=== PATIENT | male | born 1950 | race Caucasian/White ===

== ENCOUNTER 2016-10-09 15:22 | Emergency (ER) | payer MEDICARE ==
[2016-10-09] MEDS ORDERED: HEPARIN SOD PORCINE IV ONE (17:02)
[2016-10-09] MEDS ORDERED: HEPARIN SOD PORCINE 5,000 UNITS/ML VIAL ONE (17:02)
[2016-10-09] MEDS ORDERED: D5W IV ONE (17:02)
[2016-10-09 17:10] LABS: HEMATOCRIT 49.3 % (42.0-54.0); HEMOGLOBIN 15.9 g/dL (14.0-18.0); MEAN CORPUS. HGB CONCENTRATION 32.2 g/dL (32.0-36.0); MEAN CORPUSCULAR HEMOGLOBIN 36.4 pg (29.0-35.0); PLATELET COUNT 131 X 10^3uL (130-440); RED BLOOD COUNT 4.37 X 10^6uL (4.20-6.10); WHITE BLOOD COUNT 8.5 X 10^3uL (3.9-10.7)
[2016-10-09 17:13] LABS: EOSINOPHIL % (Manual) 1 % (0.0-6.0); LYMPHOCYTE % (Manual) 15 % (20.0-40.0); MONOCYTE % (Manual) 11 % (2.0-10.0); NEUTROPHIL % (Manual) 73 % (54.0-75.0); PLATELET ESTIMATE ADEQUATE
[2016-10-09 17:14] LABS: BLOOD UREA NITROGEN 6 mg/dL (9-20); CALCIUM 8.9 mg/dL (8.4-10.2); CHLORIDE 104 mmol/L (98-107); CREATININE 0.6 mg/dL (0.7-1.3); EST GLOMERULAR FILTRATION RATE > 60 mL/min; GLUCOSE 95 mg/dL (70-100); POTASSIUM 4.1 mmol/L (3.5-5.1); SODIUM 139 mmol/L (137-145)
--- NOTE | 2016-10-09 17:54 | ER NURSING DOCUMENTATION ---
Nurse's Notes [facility] Name:Jacob London Age:66 yrs Sex:Male :1950 Arrival Date:10/09/2016 Time:15:22 Bed1 Private MD: Diagnosis:Deep Vein Thrombosis (DVT)-: Extensive throughout entire right leg Presentation: 10/09 15:37 Presenting complaint: Patient states: PT with gross swelling to right leg from groin to ma toes for one week No injury Unable to palpate pedal pulse, foot grossly edematous Toes bright pink and warm Cap refill at 4. Transition of care: Home. 15:37 Acuity: ANGELIQUE 2 ma 15:37 Method Of Arrival: Private Vehicle ks Triage Assessment: 15:41 General: Appears slender, unkempt, Behavior is cooperative. Pain: Denies pain. ma Historical: - Allergies: No known drug Allergies; - Home Meds: 1. None - PMHx: None; - PSHx: Tonsills; - Tetanus: < 10 years. - Ebola Screening: : No symptoms or risks identified at this time. . - Immunization history: Flu Vaccine None. - Social history: Smoking status: Patient states was never smoker of tobacco. Patient uses alcohol on a daily basis. Screenin:42 Infectious Disease Risk None. Abuse screen: Denies threats or abuse. Nutritional ma screening: No deficits noted. Assessment: 17:28 Reassessment: No changes from previously documented assessment. ma Vital Signs: 15:41 BP 145 / 74; Pulse 83; Resp 16; Temp 97.4; ma 15:41 Pulse Ox 94% on R/A; Weight 61.23 kg; Height 5 ft. 10 in. (177.80 cm) (R); ma 17:17 BP 130 / 62; Pulse 82; Pulse Ox 95% on R/A; Pain 0/10; ma 17:25 BP 131 / 74; Pulse 73; Pulse Ox 100% on R/A; ma 17:43 BP 91 / 62; Pulse 86; Pulse Ox 95% ; Pain 0/10; ma 15:41 Body Mass Index 19.37 (61.23 kg, 177.80 cm) ma Elise Coma Score: 16:54 Eye Response: spontaneous(4). Verbal Response: oriented(5). Motor Response: obeys cd commands(6). Total: 15. ED Course: 15:22 Patient arrived in ED. ds 15:22 Franchesca Nguyen DO is Private Physician. ds 15:37 Fauzia Curry, RN is Primary Nurse. ma 15:38 Triage completed. ma 15:43 Valuables Remains with patient Patient has correct armband on for positive ma identification. Bed in low position. Call light in reach. Side rails up X 1. 16:11 Domenico Schwab MD is Attending Physician. cd 16:48 Inserted peripheral IV: 18 gauge in right antecubital area and blood collected. cb 17:37 EKG done. (by ED staff). ma 17:54 EKG attached ma Administered Medications: 17:02 Drug: heparin 80 units/kg; Route: IVP; Site: right antecubital; cb 17:51 Follow up: Response: No adverse reaction ma 17:06 Drug: heparin 12 units/kg/hr; Route: IV; Rate: 730 units/hr; Site: right antecubital; cb 17:51 Follow up: IV Status: Infusion continued upon admission ma 17:51 Follow up: Response: No adverse reaction ma 17:10 Drug: NS 0.9% 1000 ml; Route: IV; Rate: 100 ml/hr; Site: right antecubital; cb 17:50 Follow up: IV Status: Infusing continued upon transfer; IV Intake: 100ml ma Intake: 17:50 IV: 100ml; Total: 100ml. ma Outcome: 17:36 ER care complete, transfer ordered by . cd 17:43 Transferred: Patient will be transferred to: [facility] 17:43 Transferred: Facility Acceptance Time: October 09, 2016 at 16:43 Patient's face sheet was faxed to accepting facility. Face Sheet included patient's name, address, age, gender, contact information and insurance information. Patient will be transported by: [facility] [place] [place] [facility] ground. Report called to: Deysi Hawkins RN Nurse and Physician Charting and Notes were sent to Accepting Facility. All tests and/or procedures with results, if applicable, were sent to accepting facility. 17:43 Condition: stable 17:43 Instructed on need for transfer 17:53 Patient left the ED. ma Signatures: Andreina Gomez RN RN cb Abuso, Melanie, RN RN wanda Srot, Meggan, Reg Reg ds Domenico Schwab, MD cd
--- NOTE | 2016-10-09 17:54 | ER PHYSICIAN DOCUMENTATION ---
Physician Documentation [facility] Name:Jacob London Age:66 yrs Sex:Male :1950 Arrival Date:10/09/2016 Time:15:22 Bed1 Private MD: Domenico Cleary Disposition: 10/09/16 17:36 Transfer ordered to Other Acute Care Facility. Diagnosis is Deep Vein Thrombosis (DVT) - : Extensive throughout entire right leg. - Reason for transfer: Specialty. - Accepting physician is Dr. Andre, Hospitalist. - Condition is Fair. - Problem is new. - Symptoms are unchanged. COBRA Form completed? Yes Transfer - Mode of Transportation Ambulance HPI: 10/09 15:45 This 66 yrs old Male presents to ER via Private Vehicle with complaints of cd Right Leg Pain and swelling. 15:45 The patient presents with pain, that is acute, swelling. The complaints affect the cd entire right leg. Context: The problem was sustained at home, resulted from an unknown cause, the patient can fully bear weight, the patient is able to ambulate. Onset: The symptom(s)/episode began/occurred acutely, 7 day(s) ago. Associated signs and symptoms: Pertinent positives: calf tenderness, swelling, Pertinent negatives fever, nausea, tingling, vomiting. Treatment prior to arrival includes: no previous treatment. Severity of symptoms: At their worst the symptoms were moderate, in the emergency department the symptoms are unchanged. The patient has not experienced similar symptoms in the past. The patient had a Color Doppler Venous Study of the right leg which revealed DVT from the common Femoral Vein downward, involving all veins of the right leg. He denies chest pain, Arrythmias, SOB, hemoptysis or other symptoms of PE.. Historical: - Allergies: No known drug Allergies; - Home Meds: 1. None - PMHx: None; - PSHx: Tonsills; - Tetanus: < 10 years. - Ebola Screening: : No symptoms or risks identified at this time. . - Immunization history: Flu Vaccine None. - Social history: Smoking status: Patient states was never smoker of tobacco. Patient uses alcohol on a daily basis. ROS: 16:53 ENT: Negative for injury, pain, epistaxis and discharge. cd Cardiovascular: Negative for chest pain, palpitations, edema and pleuritic pain. Respiratory: Negative for shortness of breath, dyspnea on exertion, cough, sputum production, wheezing, hemoptysis and pleuritic chest pain. Abdomen/GI: Negative for abdominal pain, nausea, vomiting, diarrhea, constipation, distension, melena, hematochezia and hematemesis. : Negative for injury, bleeding, discharge, swelling, dysuria, frequency or urgency. Skin: Negative for injury, rash, itching and discoloration. 16:53 Neuro: Negative for headache, weakness, numbness, tingling, and seizure. cd 16:53 Constitutional: Negative for chills, fever, poor PO intake. 16:53 MS/extremity: Positive for swelling, tenderness, Negative for erythema, paresthesias, tingling. 16:53 All other systems are negative. Exam: Head/Face: Normocephalic, atraumatic. ENT: Nares patent. No nasal discharge, no septal abnormalities noted. Tympanic membranes are normal and external auditory canals are clear. Oropharynx with no redness, swelling, or masses, exudates, or evidence of obstruction, uvula midline. Mucous membranes dry Neck: Trachea midline, no thyromegaly or masses palpated, and no cervical lymphadenopathy. Supple, full range of motion without nuchal rigidity, or vertebral point tenderness. No Meningismus. Chest/axilla: Normal chest wall appearance and motion. Nontender with no deformity. No lesions are appreciated. Cardiovascular: Regular rate and rhythm with a normal S1 and S2. No gallops, murmurs, or rubs. Normal PMI, no JVD. No pulse deficits. Respiratory: Lungs have equal breath sounds bilaterally, clear to auscultation and percussion. No rales, rhonchi or wheezes noted. No increased work of breathing, no retractions or nasal flaring. Abdomen/GI: Soft, non-tender, with normal bowel sounds. No distension or tympany. No guarding or rebound. No evidence of tenderness throughout. Back: No spinal tenderness. No costovertebral tenderness. Full range of motion. 16:54 Skin: Warm, dry with normal turgor. Normal color with no rashes, no lesions, and no cd evidence of cellulitis. 16:54 Neuro: Awake and alert, GCS 15, oriented to person, place, time, and situation. Cranial nerves II-XII grossly intact. Motor strength 5/5 in all extremities. Sensory grossly intact. Cerebellar exam normal. Normal gait. 16:54 Constitutional: The patient appears alert, awake, non-diaphoretic, non-toxic, well developed, well nourished, anxious. 16:54 Musculoskeletal/extremity: Extremities: grossly normal except: noted in the right leg: swelling, tenderness, edema of the entire leg. Vital Signs: 15:41 BP 145 / 74; Pulse 83; Resp 16; Temp 97.4; ma 15:41 Pulse Ox 94% on R/A; Weight 61.23 kg; Height 5 ft. 10 in. (177.80 cm) (R); ma 17:17 BP 130 / 62; Pulse 82; Pulse Ox 95% on R/A; Pain 0/10; ma 17:25 BP 131 / 74; Pulse 73; Pulse Ox 100% on R/A; ma 17:43 BP 91 / 62; Pulse 86; Pulse Ox 95% ; Pain 0/10; ma 15:41 Body Mass Index 19.37 (61.23 kg, 177.80 cm) ma Elise Coma Score: 16:54 Eye Response: spontaneous(4). Verbal Response: oriented(5). Motor Response: obeys cd commands(6). Total: 15. MDM: 15:40 Data interpreted: Pulse oximetry: on room air is 94 %. Interpretation: normal. cd 16:00 Data reviewed: vital signs, nurses notes, old medical records, and as a result, I will cd *Transfer Patient administer IV fluids, NS maintenence, Give a Heparin Bolus, then start him on a Heparin Drip.. 16:37 Patient medically screened. cd 16:56 Differential diagnosis: Right Leg DVT, Cellulitis, CHF. cd 17:00 Physician consultation: Dr. Thai WILKINS was called at 16:40, was contacted at 16:40, cd regarding admission, to the floor, consult, patient's condition, need to evaluate the patient as soon as possible, and will see patient in inpatient room, shortly, later today, after a discussion of the case, a recommendation for transfer for higher level of care is made. 17:05 Counseling: I had a detailed discussion with the patient and/or guardian regarding: the cd historical points, exam findings, and any diagnostic results supporting the discharge/admit diagnosis, radiology results, the need to transfer to another facility, for higher level of care, [facility] does not immediately have the required specialist. Response to treatment: There is no appreciated change of the patient's symptoms at this time, and as a result, I will transfer the patient to [facility] for admission to the Hospitalist service. Venous Endovascular Interventionalist, Dr. Easton Alejandro, who agreed with transfer to [facility] for admission and workup for an eventual Venous Endovascular procedure.. 17:54 EKG attached ak 10/09 17:14 Order name: CBC W/ MANUAL DIFFERENTIAL; Complete Time: 17:37 EDMS 10/09 17:37 Interpretation: Normal. 10/09 17:20 Order name: PROTIME/INR; Complete Time: 17:37 EDMS 10/09 17:37 Interpretation: Normal. 10/09 17:22 Order name: BASIC METABOLIC PANEL; Complete Time: 17:37 EDMS 10/09 17:37 Interpretation: Normal. 10/09 16:23 Order name: Iv Saline Lock; Complete Time: 16:50 cd Dispensed Medications: 17:02 Drug: heparin 80 units/kg; Route: IVP; Site: right antecubital; cb 17:51 Follow up: Response: No adverse reaction ma 17:06 Drug: heparin 12 units/kg/hr; Route: IV; Rate: 730 units/hr; Site: right antecubital; cb 17:51 Follow up: IV Status: Infusion continued upon admission ma 17:51 Follow up: Response: No adverse reaction ak 17:10 Drug: NS 0.9% 1000 ml; Route: IV; Rate: 100 ml/hr; Site: right antecubital; cb 17:50 Follow up: IV Status: Infusing continued upon transfer; IV Intake: 100ml ak Signatures: Andreina Gomez, RN RN Fauzia Frank RN RN Domenico Quiñones MD MD cd
== END 2016-10-09 17:54 | disposition short-term general hospital (02) ==
LOC: ER 15:22
DX: I82.401 Acute embolism and thrombosis of unspecified deep veins of right lower extremity (principal); R60.0 Localized edema; E86.0 Dehydration; R94.31 Abnormal electrocardiogram [ECG] [EKG]; Z99.89 Dependence on other enabling machines and devices; Z74.3 Need for continuous supervision
CPT/HCPCS: 80048; 85007; 85027; 85302; 85303; 85306; 85610; 93005; 93010; 96365; 96375; 99285; A0425; A0427; J1644